=== PATIENT | female | born 1950 | race Caucasian/White ===

== ENCOUNTER → 2023-09-29 | Outpatient (CLI) | payer MEDICARE | LOC: COL.CARD 09:19 | DX: C50.919 Malignant neoplasm of unspecified site of unspecified female breast (principal) ==

== ENCOUNTER → 2023-10-27 | Outpatient (CLI) | payer MEDICARE | LOC: COL.CARD 05:54 | DX: C50.919 Malignant neoplasm of unspecified site of unspecified female breast (principal) ==